=== PATIENT | female | born 1995 | race Caucasian/White ===

== ENCOUNTER 2019-09-11 10:46 | Emergency (ER) | payer OTHER ==
--- NOTE | 2019-09-11 11:10 | ED ---
Upper Extremity Pain - HPI Summary HPI Summary: This pt is a 24 y/o female presenting to [facility] [place]/o right shoulder pain s/p slipping and falling on ice 3 days ago on 09/08/19. Pt states she fell on her anterior right shoulder. Denies head strike or LOC. Pt notes she has been having right shoulder pain since then. Her shoulder pain is aggravated with lifting up her right arm. She currently rates her pain 5-6 out of 10 in severity. Denies any weakness, tingling or numbness. She reports she also sustained bruises on her bilateral knees but denies any knee pain. Pt denies any other injuries from her fall. 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 LMP: 2 weeks ago. Denies any PMHx. - History of Current Complaint Chief Complaint: EDShoulderClavicZonia Stated Complaint: R SHOULDER INJ FROM FALL PER PT Time Seen by Provider: 09/11/19 11:02 Hx Obtained From: Patient Mechanism Of Injury: Direct Blow, Fall From A Standing Position - after slipping on ice Onset/Duration: Started Days Ago - 3, Still Present Timing: Lasting Days - 3 Severity Currently: Moderate Pain Location: Shoulder - right Aggravating Factor(s): Lifting Alleviating Factor(s): Nothing Associated Signs & Symptoms: Positive: Bruising - bilateral knees. Negative: Fever, Weakness, Numbness/Tingling - Allergies/Home Medications Allergies/Adverse Reactions: Allergies Allergy/AdvReac Type Severity Reaction Status Date / Time amoxicillin Allergy Rash Verified 09/11/19 10:53 seasonal allergies. Allergy Unknown Uncoded 09/11/19 10:53 Reaction Details PMH/Surg Hx/FS Hx/Imm Hx Endocrine/Hematology History: Denies: Hx Diabetes Cardiovascular History: Denies: Hx Hypertension - Surgical History Surgical History: None Infectious Disease History: No Infectious Disease History: Denies: Traveled Outside the [place] in Last 30 Days - Family History Known Family History: Positive: Cardiac Disease Family History: [place] - Social History Alcohol Use: None Substance Use Type: Reports: None Smoking Status (MU): Never Smoked Tobacco Review of Systems Negative: Fever Musculoskeletal: Other - POSITIVE: right shoulder pain Positive: Bruising - bilateral knees Negative: Weakness, Paresthesia, Numbness All Other Systems Reviewed And Are Negative: Yes Physical Exam - Summary Physical Exam Summary: VITAL SIGNS: Reviewed. GENERAL: Patient is a well-developed and nourished female. Patient is not in any acute respiratory distress. HEAD AND FACE: No signs of trauma. No ecchymosis, hematomas or skull depressions. No sinus tenderness. EYES: PERRLA, EOMI x 2, No injected conjunctiva, no nystagmus. EARS: Hearing grossly intact. Ear canals and tympanic membranes are within normal limits. MOUTH: Oropharynx within normal limits. NECK: Supple, trachea is midline, no adenopathy, no JVD, no carotid bruit, no c- spine tenderness, neck with full ROM. CHEST: Symmetric, no tenderness at palpation LUNGS: Clear to auscultation bilaterally. No wheezing or crackles. CVS: Regular rate and rhythm, S1 and S2 present, no murmurs or gallops appreciated. ABDOMEN: Soft, non-tender. No signs of distention. No rebound, no guarding, and no masses palpated. Bowel sounds are normal. EXTREMITIES: RUE: Right shoulder with decreased ROM in abduction about 35 degrees. No deformities. No hematoma. No swelling. Good pulses. Good capillary refill. NEURO: Alert and oriented x 3. No acute neurological deficits. Speech is normal and follows commands. SKIN: Dry and warm Triage Information Reviewed: Yes Vital Signs On Initial Exam: Initial Vitals Temp Pulse Resp BP Pulse Ox 98.0 F 88 19 146/81 98 09/11/19 10:49 09/11/19 10:49 09/11/19 10:49 09/11/19 10:49 09/11/19 10:49 Vital Signs Reviewed: Yes Procedures - Sedation Patient Received Moderate/Deep Sedation with Procedure: No Diagnostics - Vital Signs Vital Signs Temp Pulse Resp BP Pulse Ox 09/11/19 10:49 98.0 F 88 19 146/81 98 - Laboratory Lab Statement: Any lab studies that have been ordered have been reviewed, and results considered in the medical decision making process. - Radiology Right shoulder XR Radiology Interpretation Completed By: Radiologist Summary of Radiographic Findings: IMPRESSION: Negative radiographic exam of the RIGHT shoulder. Dr. Hastings has reviewed this report. Re-Evaluation - Re-Evaluation First Eval Re-Evaluation Time: 11:58 Comment: Reviewed results with pt. She will be discharged home. Course/Dx - Course Assessment/Plan: This pt is a 24 y/o female presenting to [facility] c/o right shoulder pain s/p slipping and falling on ice 3 days ago on 09/08/19. Pt states she fell on her anterior right shoulder. Denies head strike or LOC. Pt notes she has been having right shoulder pain since then. Her shoulder pain is aggravated with lifting up her right arm. She currently rates her pain 5-6 out of 10 in severity. Denies any weakness, tingling or numbness. She reports she also sustained bruises on her bilateral knees but denies any knee pain. Pt denies any other injuries from her fall. 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 LMP: 2 weeks ago. Denies any PMHx. X-ray of the right shoulder he impression: No fracture or dislocation. In the ED course the patient was given Motrin for the pain. I believe that the patient has a rotator cuff injury. Therefore the patient will be placed in a shoulder immobilizer and discharged home with follow-up from orthopedics. Patient is hemodynamically stable, alert and oriented 3. - Diagnoses Differential Diagnosis/HQI/PQRI: Positive: Bursitis, Contusion, Fracture (Open) , Fracture (Closed), Strain, Sprain Provider Diagnoses: Shoulder pain Discharge ED - Sign-Out/Discharge Documenting (check all that apply): Patient Departure - Discharge home - Discharge Plan Condition: Stable Disposition: HOME Patient Education Materials: Rotator Cuff Injury (ED) Referrals: Millie Quinones MD [Medical Doctor] - Additional Instructions: FOLLOW UP WITH YOUR PRIMARY CARE PROVIDER IN 2-3 DAYS. Also call and follow up with Dr. Quinones, orthopedist. RETURN TO THE ED FOR ANY NEW OR WORSENING SYMPTOMS. - Billing Disposition and Condition Condition: STABLE Disposition: Home - Attestation Statements Document Initiated by Kaeale: Yes Documenting Scribe: Rosa Greene Provider For Whom Silke is Documenting (Include Credential): Cash Hastings MD Scribe Attestation: Rosa Hamm, kaelaed for Cash Hastings MD on 09/11/19 at 1465. Scribe Documentation Reviewed: Yes Provider Attestation: The documentation as recorded by the Rosa evans accurately reflects the service I personally performed and the decisions made by me, Cash Hastings MD Status of Scribe Document: Viewed
[2019-09-11] MEDS ORDERED: Ibuprofen TAB* 600 MG PO ONE (11:11)
[2019-09-11 12:05] VITALS: BP 129/93
== END 2019-09-11 12:05 | disposition home or self-care (01) ==
LOC: ED 10:46
DX: M25.511 Pain in right shoulder (principal); W00.0XXA Fall on same level due to ice and snow, initial encounter; Y92.9 Unspecified place or not applicable; Z88.0 Allergy status to penicillin
CPT/HCPCS: 99282; A9270-GY